=== PATIENT | female | born 1960 | race Caucasian/White ===

== ENCOUNTER 2017-05-06 12:32 | Observation (INO) ==
[2017-05-06] MEDS ORDERED: Aspirin 81 MG TAB.CHEW PO ONE (12:59)
[2017-05-06 13:15] LABS: Basophils # 0.1 K/mcL (0.0-0.2); Basophils % 0.8 %; Hematocrit 47.4 % (35.3-44.9); Hemoglobin 15.6 g/dL (11.5-15.4); Immature Granulocytes % 0.5 % (0-4); Immature Platelets 3.4 % (1.1-6.1); Lymphocytes # 3.3 K/mcL (0.6-4.6); Lymphocytes % 28.4 %; Mean Corpuscular HGB Conc 32.9 g/dL (31.6-35.5); Mean Corpuscular Hemoglobin 29.4 pg (28.0-33.3); Mean Corpuscular Volume 89.4 fL (83.0-100.0); Mean Platelet Volume 9.8 fL (9.4-12.4); Monocytes # 0.9 K/mcL (0.0-1.3); Monocytes % 7.5 %; Neutrophils # 7.2 K/mcL (1.6-8.9); Platelet Count 355 K/mcL (140-400); Red Cell Distribution Width 12.9 % (11.5-14.5); Segmented Neutrophils % 62.8 %
[2017-05-06] MEDS ORDERED: Nitroglycerin 0.4 MG TAB.SUBL SL PRN (13:21)
--- NOTE | 2017-05-06 13:26 | Emergency Department Note ---
Disposition Clinical Impression: Chest pain Qualifiers: Chest pain type: unspecified Qualified Code(s): R07.9 - Chest pain, unspecified Disposition: Admitted As Inpatient Condition: Good Referrals: Oscar Huang MD [Non-Partnered Physician] - Forms: ED Satisfaction Letter Chest Pain HPI - General Chief Complaint: ED Chest Pain Stated Complaint: chest pressure Time Seen by Provider: 05/06/17 12:45 Source: patient Mode of arrival: private vehicle Limitations: no limitations Vital Signs Reviewed: Yes Nursing Notes Reviewed: Yes - History of Present Illness HPI Narrative: 56-year-old female history of hypertension, chronic pain recently weaned from tramadol one week ago and out of her antidepressant who presents to the ER due to intermittent chest pain for 3 days. Patient states she developed chest pain whenever she is exerting herself. States she gets worse when she is walking around or doing her usual activities. Reports she has a dull ache at rest. She has been short of breath during this time as well. She denies prior history of cardiac disease. She was wondering may be a part of it was to not being on tramadol anymore. Reports that she has had some generalized aches. No other complaints. Pt complaint: chest pain Onset (ago): day(s) Duration: intermittent Onset: during exertion Pain Location: left chest Severity: moderate Severity scale (1-10): 7 Quality: aching Pain Radiation: LUE Improves with: nothing Worsens with: exertion Associated symptoms: Reports: dyspnea. Denies: nausea, vomiting, diaphoresis Treatments prior to arrival chest pain: none - Related Data On Oral Contraceptives: No Allergies Allergy/AdvReac Type Severity Reaction Status Date / Time sulfamethoxazole Allergy See Verified 05/06/17 12:40 [From ] Comments trimethoprim [From ] Allergy See Verified 05/06/17 12:40 Comments Sulfa (Sulfonamide AdvReac Hives Verified 05/06/17 12:40 Antibiotics) All systems ED: reviewed and negative except as stated. Constitutional: Denies: fever Cardiovascular: Reports: chest pain, dyspnea on exertion Respiratory: Reports: dyspnea. Denies: cough Gastrointestinal: Denies: abdominal pain, nausea, vomiting Chest Pain PMH - Past Medical History Medical history: Reports: no medical history Psychiatric history: Reports: depression - Social History Smoking Status: Never smoker Alcohol use: Reports: none Drug use: Reports: none Physical Exam - General Limitations: no limitations General appearance: alert, in no apparent distress - Head Head exam: atraumatic - Eye Eye exam: Present: normal appearance - ENT ENT exam: normal exam - Neck Neck exam: Present: normal inspection - Chest Chest inspection: Present: normal inspection, symmetric chest wall rise - Respiratory Respiratory exam: Present: normal lung sounds bilaterally - Cardiovascular Cardiovascular exam: Present: normal rhythm, tachycardia, normal heart sounds - Abdominal Exam Abdominal exam: Present: soft, Non-Tender. Absent: tenderness - Extremities Exam Extremities exam: Present: normal inspection, full ROM - Expanded Upper Extremity Exam Shoulder exam: Present: normal inspection, full ROM Arm exam: Present: normal inspection, full ROM Elbow exam: Present: normal inspection, full ROM Forearm/Wrist exam: Present: normal inspection, full ROM Hand exam: Present: normal inspection, full ROM - Expanded Lower Extremity Exam Hip/Pelvis exam: Present: normal inspection, full ROM Upper leg exam: Present: normal inspection, full ROM Knee exam: Present: normal inspection, full ROM Lower leg exam: Present: normal inspection, full ROM Ankle exam: Present: normal inspection, full ROM Foot/toe exam: Present: normal inspection, full ROM - Skin Skin exam: Present: warm, dry Course Course Narrative: Patient seen and examined. We will get an EKG, chest x-ray as well as labs including troponin. Reporting of some baseline pain now so we will give her an aspirin and nitroglycerin. - Reevaluation(s) Reevaluation #1: Discussed results of imaging and labs with the patient. Reports her chest pain is gone after 2 sublingual nitroglycerin. She is agreeable with admission to the hospital. Vital Signs Temperature 99.0 F 05/06/17 12:41 Pulse Rate 107 05/06/17 12:41 Respiratory Rate 18 05/06/17 12:41 Blood Pressure 158/99 05/06/17 12:41 O2 Sat by Pulse Oximetry 99 05/06/17 12:41 Temperature 99.0 F 05/06/17 12:41 Pulse Rate 107 05/06/17 12:41 Respiratory Rate 18 05/06/17 12:41 Blood Pressure 158/99 05/06/17 12:41 O2 Sat by Pulse Oximetry 99 05/06/17 12:41 Oxygen Delivery Oxygen Delivery Room Air Chest Pain - MDM Narrative Medical decision making narrative: 56-year-old female presents to the ER due to intermittent chest pain for 3 days. Exertional with a baseline dull pressure. Her EKG here is nonischemic. Chest x-ray unremarkable. Initial troponin negative. Patient given an aspirin and 2 sublingual nitroglycerin with resolution of her chest pain. She is admitted to the hospitalist service for chest pain rule out. - Lab Data Lab results reviewed: Yes I reviewed the patient's lab results. Result diagrams: 05/06/17 13:06 05/06/17 13:06 Lab Results 05/06/17 05/06/17 05/06/17 Range/Units 13:06 13:06 13:06 WBC 11.5 H (4.3-11.1) K/mcL RBC 5.30 H (3.82-4.97) M/mcL Hgb 15.6 H (11.5-15.4) g/dL Hct 47.4 H (35.3-44.9) % MCV 89.4 (83.0-100.0) fL MCH 29.4 (28.0-33.3) pg MCHC 32.9 (31.6-35.5) g/dL RDW 12.9 (11.5-14.5) % Plt Count 355 (140-400) K/mcL MPV 9.8 (9.4-12.4) fL Immature Gran % 0.5 (0-4) % Seg Neutrophils % 62.8 % Lymphocytes % 28.4 % Monocytes % 7.5 % Eosinophils % 0.0 % Basophils % 0.8 % Neutrophils # 7.2 (1.6-8.9) K/mcL Lymphocytes # 3.3 (0.6-4.6) K/mcL Monocytes # 0.9 (0.0-1.3) K/mcL Eosinophils # 0.0 (0.0-0.6) K/mcL Basophils # 0.1 (0.0-0.2) K/mcL Immature Plt Fraction 3.4 (1.1-6.1) % Sodium 138 (136-145) mEq/L Potassium 3.2 L (3.5-5.1) mEq/L Chloride 105 (98-107) mEq/L Carbon Dioxide 24 (23-29) mEq/L BUN 7 (6-20) mg/dL Creatinine 0.64 (0.60-1.20) mg/dL Est GFR ( Amer) > 60 (> 60) Est GFR (Non-Af Amer) > 60 (> 60) BUN/Creatinine Ratio 11 (6-26) Glucose 116 H (70-105) mg/dL Calculated Osmolality 285 (280-300) Calcium 8.8 (8.6-10.3) mg/dL Troponin I (< 0.04) ng/mL B-Natriuretic Peptide 40 (Less than 100) pg/mL 05/06/17 Range/Units 13:06 WBC (4.3-11.1) K/mcL RBC (3.82-4.97) M/mcL Hgb (11.5-15.4) g/dL Hct (35.3-44.9) % MCV (83.0-100.0) fL MCH (28.0-33.3) pg MCHC (31.6-35.5) g/dL RDW (11.5-14.5) % Plt Count (140-400) K/mcL MPV (9.4-12.4) fL Immature Gran % (0-4) % Seg Neutrophils % % Lymphocytes % % Monocytes % % Eosinophils % % Basophils % % Neutrophils # (1.6-8.9) K/mcL Lymphocytes # (0.6-4.6) K/mcL Monocytes # (0.0-1.3) K/mcL Eosinophils # (0.0-0.6) K/mcL Basophils # (0.0-0.2) K/mcL Immature Plt Fraction (1.1-6.1) % Sodium (136-145) mEq/L Potassium (3.5-5.1) mEq/L Chloride (98-107) mEq/L Carbon Dioxide (23-29) mEq/L BUN (6-20) mg/dL Creatinine (0.60-1.20) mg/dL Est GFR ( Amer) (> 60) Est GFR (Non-Af Amer) (> 60) BUN/Creatinine Ratio (6-26) Glucose (70-105) mg/dL Calculated Osmolality (280-300) Calcium (8.6-10.3) mg/dL Troponin I < 0.03 (< 0.04) ng/mL B-Natriuretic Peptide (Less than 100) pg/mL - Radiology Data Radiology results reviewed: Yes I reviewed the patient's radiology results. Chest X-Ray 05/06/17 12:59 IMPRESSION: No acute process. D/ / 05/06/2017 13:34:29 Meet Gutierrez MD / jesus Interpreting Provider: Meet Gutierrez MD - EKG Data EKG attestation: Yes I reviewed and interpreted this EKG. EKG results narrative: EKG initially sinus rhythm with a rate of 94 beats minute. Left axis deviation. Normal intervals. Normal R-wave progression. T-wave inversions in lead 3. No gross ST elevations or depressions. No acute ischemic findings. No significant changes from previous EKG dated 02/15/13. Heart Score - Score History: Moderately Suspicious EKG: Normal Age: 45-65 Risk Factors: 1-2 risk factors Troponin: Less than normal limit HEART Score Total: 3 S.B.A.R. - S.Mundo.A.Rosendo Situation: Demographics, MOA Background: Presenting Complaint, Relevant PMH, Meds, & Allergies Assessment: Vital Signs, Course and respsone to treatment, Exam Concerns, Patient/Family Expectation, Pertinant Lab Results Recommendation: Barrier(s) to disposition, Recommendation based on pending studies, treatments, or consults S.B.A.RNola Report Given to: Dr. Nadine Medrano Repor Time: 14:33 Attestation Statement - Attestation Attestation: I examined this patient and my medical decision-making was reviewed with the Resident Physician, Dr. Gamez. I agree with the documented findings, disposition and treatment plan as described except to the extent set forth below. Patient is a 56-year-old white female history of hypertension who presents to the emergency department with a three-day history of intermittent chest pain that she describes and location as to under her left breast that radiates into her left neck shoulder and arm associated with shortness of breath, diaphoresis , and mild nausea. Patient states these symptoms are exacerbated by exertion and resolved with rest. 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 Patient has no prior cardiac history and has never had any cardiac testing done in the past. Her only other significant recent medical history is that she suffers from chronic pain from osteoarthritis as well as low back pain from herniated disks and has been on tramadol chronically for years and this was discontinued approximately one week ago. Patient states that she has noticed some more aching in her knees and low back generally but nothing significant pain osborn, and does not feel that these chest symptoms are related to this. Patient does state that she spelled a little more anxious than normal but denies any palpitations and no other associated symptoms. I agree with patient's physical exam findings as documented, vital signs are stable patient's in no acute distress on arrival. EKG was normal sinus with no acute ST or T-wave changes appreciated. Patient's chest x-ray was unremarkable for any infiltrate or effusion normal heart size and mediastinum. Patient was given aspirin on arrival. Patient's labs overall are unremarkable with a negative troponin. At this time will recommend admission for further evaluation and treatment for provocative testing to rule out a cardiac source of chest pain. Patient agrees with this plan we will discuss with the hospitalist.
[2017-05-06 13:33] LABS: BUN/Creatinine Ratio 11 (6-26); Blood Urea Nitrogen 7 mg/dL (6-20); Calcium 8.8 mg/dL (8.6-10.3); Carbon Dioxide 24 mEq/L (23-29); Chloride 105 mEq/L (98-107); Glucose 116 mg/dL (70-105); Osmolality,Calculated 285 (280-300); Potassium 3.2 mEq/L (3.5-5.1); Sodium 138 mEq/L (136-145); eGFR For African Americans > 60 (> 60); eGFR For Non-African Americans > 60 (> 60)
[2017-05-06] MEDS ORDERED: Ondansetron 4 MG/2 ML VIAL IVP PRN (15:26)
[2017-05-06] MEDS ORDERED: Acetaminophen 325 MG TABLET PO PRN (15:26)
[2017-05-06] MEDS ORDERED: Ipratropium/Albuterol Neb 3 ML IH PRN (15:26)
[2017-05-06] MEDS ORDERED: Naloxone 0.4 MG/ML INJ IVP PRN (15:26)
[2017-05-06] MEDS ORDERED: 0.9 % Sodium Chloride 1,000 ML IVC SCH (15:30)
--- NOTE | 2017-05-06 15:31 | Internal Med History&Physical ---
Date of Encounter: 05/06/17 Time of Encounter: 15:29 Assessment and Plan (1) Chest pain Current visit: Yes Status: Acute Aspirin, lipid panel Nitroglycerin as needed Hold metoprolol for stress test Telemetry, monitor troponins, schedule a stress test and an echocardiogram for the morning Omeprazole for GI prophylaxis and Lovenox for DVT prophylaxis. The patient will be admitted for observation. Full code. Time spent on this admission 40 minutes Qualifiers: Chest pain type: unspecified Qualified Code(s): R07.9 - Chest pain, unspecified (2) Hypokalemia Current visit: Yes Status: Acute Replete as needed (3) Accelerated hypertension Current visit: Yes Status: Acute Use hydralazine as needed a Continue Ibersartan (4) Depression Current visit: Yes Status: Acute Stable Continue citalopram Qualifiers: Depression Type: major depressive disorder Active/Remission status: in partial remission Qualified Code(s): F32.4 - Major depressive disorder, single episode, in partial remission Internal Medicine - H&P: HPI Chief complaint: Chest pain Admitted From: Emergency Dept History of present illness: Ms. Thomas is a 56 year old female with a past medical history of hypertension, depression, restless leg syndrome, chronic pain who was recently weaned off tramadol about a week ago. Patient started complaining of chest pain 3 days ago on and off mainly on exertion 7 out of 10 in intensity that is intermittent and has decreased to 4 out of 10 in intensity accompanied at times of diaphoresis and headache. The pain is midsternal and radiated the left breast and left shoulder. EKG shows a T-wave inversion in lead 3 alone. White blood cell count is 11.5 hemoglobin is 15.6 hematocrit 47.6. Chest x-ray does not show any acute cardiopulmonary disease. Blood pressure was 158/99 and her heart rate was 107. She is complaining still of some discomfort, denies any other symptoms Past Med Surg Social Fam HX - Past Medical History Medical history: hypertension, other (Chronic pain, depression, lumbar spinal stenosis, C. difficile, osteoarthritis, degenerative disc disease, restless leg syndrome) Psychiatric history: depression - Past Surgical History Surgical History: cholecystectomy, other (Carpal tunnel syndrome surgery) - Social History Smoking Status: Never smoker Smokeless Tobacco Status: No Alcohol use: none Drug use: none - Additional Family History Additional family history: Father mother and sister all with diabetes and hypertension, father and mother with CVA and SD in the 50s. Paternal uncle with multiple sclerosis Internal Medicine - H&P: Meds Aspirin 81 mg PO DAILY 05/06/17 [History] Carbidopa/Levodopa ER 50/200 [Sinemet ER 50-200 TAB] 1 tab PO TID 05/06/17 [ History] Citalopram Hydrobromide [Celexa] 20 mg PO DAILY 05/06/17 [History] Ferrous Sulfate [Iron] 325 mg PO DAILY 05/06/17 [History] Furosemide [Lasix] 40 mg PO BID 05/06/17 [History] Irbesartan [Avapro] 150 mg PO DAILY 05/06/17 [History] Metoprolol [Lopressor] 25 mg PO BID 05/06/17 [History] Mirabegron [Myrbetriq] 50 mg PO DAILY 05/06/17 [History] Potassium Chloride [K-Tab ER] 20 meq PO BID 05/06/17 [History] Trospium Chloride 20 mg PO BID 05/06/17 [History] 3 Allergy/AdvReac Type Severity Reaction Status Date / Time sulfamethoxazole Allergy See Verified 05/06/17 15:16 [From Decra] Comments trimethoprim [From Decra] Allergy See Verified 05/06/17 15:16 Comments Sulfa (Sulfonamide AdvReac Hives Verified 05/06/17 15:16 Antibiotics) All Systems PM: A 10-system review of systems was performed and is negative for pertinent findings except as documented above in the HPI. Review of systems: Mild chest discomfort, other systems out of the 10 reviewed were negative - Constitutional Vitals: Temp Pulse Resp BP Pulse Ox 99.0 F 107 18 158/99 99 05/06/17 12:41 05/06/17 12:41 05/06/17 12:41 05/06/17 12:41 05/06/17 12:41 General appearance: Present: A&O X 3, obese - Head Head exam: Present: atraumatic, normocephalic - Eye Eye exam: Present: PERRL, conjuntiva pink, sclera anicteric Pupils: Present: PERRL - Neck Neck exam general surgery: Present: supple, trachea midline. Absent: lymphadenopathy - Respiratory Respiratory exam: Present: CTAB. Absent: accessory muscle use, rales, rhonchi, wheezes - Cardiovascular Cardiovascular exam: Present: RRR, +S1, +S2. Absent: diastolic murmur, gallop, rubs, systolic murmur - GI/Abdominal GI/Abdominal exam: Present: normal bowel sounds, soft, no peritoneal signs. Absent: distended, tenderness - Extremities Exam Extremities exam: Present: warm, radial pulses palpable and symmetrical. Absent : calf tenderness, cyanotic, pedal edema - Neurological Exam Neurological exam: Present: CN II-XII intact, oriented X3, no focal deficits. Absent: pronater drift, facial droop, speech deficit - Skin Skin exam: Present: dry, intact Internal Med - H&P Results - Labs CBC & Chem 7: 05/06/17 13:06 05/06/17 13:06
[2017-05-06] MEDS: Furosemide 40 MG TABLET PO SCH (16:10)
[2017-05-06] MEDS: *HR* Enoxaparin 40 MG/0.4 ML SYRINGE SQ SCH (16:11)
[2017-05-06] MEDS: *HR* OxyCODONE Immed Rel 5 MG TABLET PO PRN (17:24)
[2017-05-07] MEDS: *HR* OxyCODONE Immed Rel 5 MG TABLET PO PRN (01:21)
[2017-05-07] MEDS: Carbidopa/Levodopa ER 50/200 TABLET PO SCH ×2 (01:36→09:36)
[2017-05-07 02:02] LABS: BUN/Creatinine Ratio 13 (6-26); Blood Urea Nitrogen 9 mg/dL (6-20); Calcium 8.3 mg/dL (8.6-10.3); Carbon Dioxide 22 mEq/L (23-29); Chloride 108 mEq/L (98-107); Chol/HDL Ratio 6.1 (0-4.9); Cholesterol 194 mg/dL (< 200); Glucose 102 mg/dL (70-105); HDL Cholesterol 32 mg/dL (40-59); LDL Cholesterol,Calculated 115 mg/dL (0-99); Osmolality,Calculated 291 (280-300); Potassium 3.2 mEq/L (3.5-5.1); Sodium 141 mEq/L (136-145); Triglycerides 233 mg/dL (< 150); eGFR For African Americans > 60 (> 60); eGFR For Non-African Americans > 60 (> 60)
[2017-05-07] MEDS: *HR* Enoxaparin 40 MG/0.4 ML SYRINGE SQ SCH (05:43)
[2017-05-07 07:21] VITALS: BP 162/87
[2017-05-07] MEDS ORDERED: Potassium Chloride Elixir 20 MEQ/15 ML UDC PO ONE (08:02)
[2017-05-07] MEDS ORDERED: Aspirin Enteric Coated 325 MG Tablet PO SCH (09:00)
[2017-05-07] MEDS: Furosemide 40 MG TABLET PO SCH (09:36)
--- NOTE | 2017-05-08 22:18 | Discharge Summary ---
Date of Encounter: 05/07/17 Time of Encounter: 10:00 - Discharge Diagnosis (1) Chest pain Priority: Primary Status: Acute Qualifiers: Chest pain type: unspecified Qualified Code(s): R07.9 - Chest pain, unspecified (2) Essential hypertension Priority: Secondary Status: Chronic (3) Hypokalemia Priority: Primary Status: Acute (4) Depression Priority: Secondary Status: Chronic Qualifiers: Depression Type: unspecified Qualified Code(s): F32.9 - Major depressive disorder, single episode, unspecified - Discharge Medications Home Medications: Aspirin 81 mg PO DAILY 05/06/17 [History] Carbidopa/Levodopa ER 50/200 [Sinemet ER 50-200 TAB] 1 tab PO TID 05/06/17 [ History] Citalopram Hydrobromide [Celexa] 20 mg PO DAILY 05/06/17 [History] Ferrous Sulfate [Iron] 325 mg PO DAILY 05/06/17 [History] Furosemide [Lasix] 40 mg PO BID 05/06/17 [History] Irbesartan [Avapro] 150 mg PO DAILY 05/06/17 [History] Metoprolol [Lopressor] 25 mg PO BID 05/06/17 [History] Mirabegron [Myrbetriq] 50 mg PO DAILY 05/06/17 [History] Potassium Chloride [K-Tab ER] 20 meq PO BID 05/06/17 [History] Trospium Chloride 20 mg PO BID 05/06/17 [History] Allergies/Adverse Reactions: 3 Allergy/AdvReac Type Severity Reaction Status Date / Time sulfamethoxazole Allergy See Verified 05/06/17 15:16 [From ] Comments trimethoprim [From ] Allergy See Verified 05/06/17 15:16 Comments Sulfa (Sulfonamide AdvReac Hives Verified 05/06/17 15:16 Antibiotics) Date of admission: 05/06/17 14:38 Primary care physician: Ruben Riley Consults: 05/06/17 16:06 Consult to Nutrition [CONS] Routine Comment: Consulting Provider: NUTRITION Reason for Dietary Consult: MST Score Discharging clinician: Criselda Chavez Anticipated date of discharge: 05/07/17 - Patient Status Disposition: Left Against Medical Advice Condition: Good - Discharge Instructions Follow Up With: [place],Ruben Scott, DO [Primary Care Provider] - Hospital course: Ms. Thomas is a 56 year old female with the above medical problems, who was admitted with retrosternal chest pain. Initial labs, EKG, chest XRay showed no acute abnormality. serial Troponins remained negative. SHe was noted to have hypokalemia and was supplemented with potassium chloride, Magnesium level was pending. She was scheduled for Echocardiogram and nuclear stress test, however patient stated she had to take care of her and could not stay in the hospital any longer. SHe was explained about the risks of leaving against medical advice, however she did sign AMA papers, she was alert and oriented at the time. She was strongly encouraged to f/up with her PCP. - Time Spent with Patient Total time spent providing and/or coordinating discharge services: Greater than 30 minutes (40 min) - Constitutional Vitals: Temp Pulse Resp BP Pulse Ox 97.8 F 93 16 162/87 96 05/07/17 07:20 05/07/17 07:20 05/07/17 07:20 05/07/17 07:20 05/07/17 07:20 General appearance: Present: A&O X 3, obese, answers questions appropriately - Respiratory Respiratory exam: Present: CTAB. Absent: accessory muscle use, rales, rhonchi, wheezes - Cardiovascular Cardiovascular exam: Present: RRR, +S1, +S2. Absent: diastolic murmur, gallop, rubs, systolic murmur
--- NOTE | 2017-05-09 17:07 | Electrocardiograph Report ---
[place] [id number] Test Date: 2017-05-06 Pat Name: Melyssa Thomas Department: 104 Room: 2A Gender: F Rn Liaison: : 1960 Requested By: Kenneth Gamez Order Number: [id number] Reading MD: Cole Alaniz Measurements Intervals [place] Rate: 94 P: 23 VA: 146 QRS: -10 QRSD: 89 T: 11 QT: 346 QTc: 397 Interpretive Statements SINUS RHYTHM INFERIOR MYOCARDIAL INFARCTION, PROBABLY OLD Electronically Signed On 05-09-2017 17:05:22 EST by Cole Alaniz
== END 2017-05-07 09:56 | disposition left against medical advice (07) ==
LOC: 2ANU 12:32 → EMEROO 12:32 → SUATTDRO 14:38 → 2ANU 15:43
PROVIDERS: ADMIT Internal Medicine; ATTEND Internal Medicine

== ENCOUNTER 2020-12-11 23:28 | Inpatient (IN) ==
[2020-12-12] MEDS ORDERED: *HR* HYDROmorphone (PF) 1 MG/ML SYRINGE IVP ONE ×3 (02:43→09:43)
[2020-12-12 05:31] LABS: Basophils # 0.1 K/mcL (0.0-0.2); Basophils % 0.5 %; Eosinophils # 0.1 K/mcL (0.0-0.6); Eosinophils % 0.7 %; Hematocrit 38.9 % (35.3-44.9); Hemoglobin 12.5 g/dL (11.5-15.4); Immature Granulocytes % 0.7 % (0-4); Lymphocytes # 2.4 K/mcL (0.6-4.6); Lymphocytes % 13.9 %; Mean Corpuscular HGB Conc 32.1 g/dL (31.6-35.5); Mean Corpuscular Hemoglobin 30.6 pg (28.0-33.3); Mean Corpuscular Volume 95.1 fL (83.0-100.0); Mean Platelet Volume 9.5 fL (9.4-12.4); Monocytes # 1.4 K/mcL (0.0-1.3); Monocytes % 8.1 %; Neutrophils # 12.8 K/mcL (1.6-8.9); Platelet Count 315 K/mcL (140-400); Red Blood Count 4.09 M/mcL (3.82-4.97); Red Cell Distribution Width 13.5 % (11.5-14.5); Segmented Neutrophils % 76.1 %; White Blood Count 16.9 K/mcL (4.3-11.1)
[2020-12-12 05:47] LABS: Blood Urea Nitrogen 16 mg/dL (6-20); Carbon Dioxide 25 mEq/L (23-29); Chloride 107 mEq/L (98-107); Potassium 3.4 mEq/L (3.5-5.1); Sodium 140 mEq/L (136-145)
[2020-12-12 05:48] LABS: BUN/Creatinine Ratio 21 (6-26); Calcium 9.1 mg/dL (8.6-10.3); Glucose 127 mg/dL (70-105); Osmolality,Calculated 293 (280-300); eGFR For African Americans > 60 (> 60); eGFR For Non-African Americans > 60 (> 60)
[2020-12-12 08:49] LABS: INR 1.1; Prothrombin Time 12.5 Seconds (9.4-12.1)
[2020-12-12] MEDS ORDERED: Ondansetron 4 MG/2 ML VIAL IVP PRN (09:36)
[2020-12-12] MEDS ORDERED: Ketorolac 15 MG/ML VIAL IVP PRN (09:36)
[2020-12-12] MEDS ORDERED: Naloxone 0.4 MG/ML INJ IVP PRN (09:36)
[2020-12-12] MEDS: *HR* Heparin 5,000 UNIT/ML VIAL SQ SCH (17:34)
[2020-12-12] MEDS ORDERED: *HR* HYDROmorphone 2 MG/ML SYRINGE IVP PRN (20:07)
[2020-12-12] MEDS: Budesonide/Formoterol 80/4.5 1 PUFF INH IH SCH (22:39)
[2020-12-13] MEDS: *HR* Heparin 5,000 UNIT/ML VIAL SQ SCH (05:30)
[2020-12-13 05:47] LABS: Basophils # 0.1 K/mcL (0.0-0.2); Basophils % 0.8 %; Eosinophils # 0.1 K/mcL (0.0-0.6); Eosinophils % 0.7 %; Hematocrit 39.9 % (35.3-44.9); Hemoglobin 12.6 g/dL (11.5-15.4); Immature Granulocytes % 1.1 % (0-4); Lymphocytes % 17.8 %; Mean Corpuscular HGB Conc 31.6 g/dL (31.6-35.5); Mean Corpuscular Hemoglobin 30.1 pg (28.0-33.3); Mean Corpuscular Volume 95.5 fL (83.0-100.0); Mean Platelet Volume 9.6 fL (9.4-12.4); Monocytes # 1.3 K/mcL (0.0-1.3); Monocytes % 11.5 %; Neutrophils # 7.7 K/mcL (1.6-8.9); Platelet Count 258 K/mcL (140-400); Red Blood Count 4.18 M/mcL (3.82-4.97); Red Cell Distribution Width 13.4 % (11.5-14.5); Segmented Neutrophils % 68.1 %; White Blood Count 11.3 K/mcL (4.3-11.1)
[2020-12-13 06:07] LABS: BUN/Creatinine Ratio 17 (6-26); Blood Urea Nitrogen 13 mg/dL (6-20); Calcium 8.7 mg/dL (8.6-10.3); Carbon Dioxide 23 mEq/L (23-29); Chloride 105 mEq/L (98-107); Glucose 127 mg/dL (70-105); Osmolality,Calculated 286 (280-300); Potassium 3.4 mEq/L (3.5-5.1); Sodium 137 mEq/L (136-145); eGFR For African Americans > 60 (> 60); eGFR For Non-African Americans > 60 (> 60)
[2020-12-13] MEDS ORDERED: *HR* Succinylcholine 200 MG/10 ML VIAL IVP ONE (06:52)
[2020-12-13] MEDS ORDERED: *HR* HYDROMORPHONE 2 MG/ML VIAL ONE (06:52)
[2020-12-13] MEDS ORDERED: *HR* Rocuronium Bromide 50 MG/5 ML VIAL ONE (06:52)
[2020-12-13] MEDS ORDERED: Lidocaine -MPF 2% 2 ML VIAL ONE (06:52)
[2020-12-13] MEDS ORDERED: *HR* Propofol 200 MG/20 ML VIAL IVP ONE ×2 (06:52)
[2020-12-13] MEDS ORDERED: Ondansetron 4 MG/2 ML VIAL ONE (06:52)
[2020-12-13] MEDS ORDERED: *HR* FentaNYL (PF) 100 MCG/2 ML VIAL ONE (06:52)
[2020-12-13] MEDS ORDERED: *HR* Midazolam HCl 2 MG/2 ML VIAL ONE (06:52)
[2020-12-13] MEDS ORDERED: *HR* HYDROmorphone PF 0.5 MG/0.5 ML SYRINGE IVP PRN ×2 (07:45→12:41)
[2020-12-13] MEDS ORDERED: *HR* OxyCODONE Immed Rel 5 MG TABLET PO PRN ×2 (07:45→12:41)
[2020-12-13] MEDS ORDERED: Ondansetron 4 MG/2 ML VIAL IVP PRN ×3 (08:05→12:41)
[2020-12-13] MEDS ORDERED: Promethazine 6.25 MG in Water for inj. (sterile) 20 ML IVPB PRN ×2 (08:05→12:41)
[2020-12-13] MEDS ORDERED: Scopolamine Patch 1.5 MG PATCH.TD72 TD ONE ×2 (08:10→12:41)
[2020-12-13] MEDS ORDERED: Acetaminophen IV 1,000 MG/100 ML BAG IVPB ONE (08:12)
[2020-12-13] MEDS: Budesonide/Formoterol 80/4.5 1 PUFF INH IH SCH ×2 (08:21→21:53)
[2020-12-13] MEDS ORDERED: *HR* Magnesium Sulfate 1 GM/2 ML VIAL ONE (08:41)
[2020-12-13] MEDS ORDERED: Ketorolac 30 MG/ML VIAL ONE (08:47)
[2020-12-13 10:07] LABS: ABG Base Excess -2 mEq/L (-2 to 3); ABG HCO3 27 mEq/L (21-27); ABG Oxygen Saturation 85 % (95-98); ABG PCO2 68 mmHg (35-45); ABG PH 7.21 pH Units (7.32-7.45); ABG PO2 63 mmHg (85-104); ABG TCO2 29 mEq/L (20-26)
[2020-12-13 10:40] LABS: Basophils # 0.1 K/mcL (0.0-0.2); Basophils % 0.6 %; Hematocrit 37.6 % (35.3-44.9); Hemoglobin 11.7 g/dL (11.5-15.4); Immature Granulocytes % 1.7 % (0-4); Lymphocytes # 2.2 K/mcL (0.6-4.6); Lymphocytes % 11.6 %; Mean Corpuscular HGB Conc 31.1 g/dL (31.6-35.5); Mean Corpuscular Hemoglobin 30.2 pg (28.0-33.3); Mean Corpuscular Volume 97.2 fL (83.0-100.0); Mean Platelet Volume 9.7 fL (9.4-12.4); Monocytes # 1.3 K/mcL (0.0-1.3); Platelet Count 253 K/mcL (140-400); Red Blood Count 3.87 M/mcL (3.82-4.97); Red Cell Distribution Width 13.5 % (11.5-14.5); Segmented Neutrophils % 79.1 %
[2020-12-13 10:41] LABS: Neutrophils # 14.6 K/mcL (1.6-8.9); White Blood Count 18.5 K/mcL (4.3-11.1)
[2020-12-13 10:55] LABS: BUN/Creatinine Ratio 16 (6-26); Blood Urea Nitrogen 13 mg/dL (6-20); Calcium 8.3 mg/dL (8.6-10.3); Carbon Dioxide 25 mEq/L (23-29); Chloride 105 mEq/L (98-107); Glucose 170 mg/dL (70-105); Osmolality,Calculated 286 (280-300); Potassium 3.8 mEq/L (3.5-5.1); Sodium 136 mEq/L (136-145); eGFR For African Americans > 60 (> 60); eGFR For Non-African Americans > 60 (> 60)
[2020-12-13] MEDS ORDERED: Isovue-370 500 ML BOTTLE IVP ONE (11:14)
[2020-12-13] MEDS ORDERED: Heparin 25,000UNIT/250ML 1/2NS 25,000 UNIT/250 ML IV.SOLN IVC SCH (12:15)
[2020-12-13] MEDS ORDERED: *HR* Heparin 5,000 UNIT/ML VIAL IVP PRN ×4 (12:15→13:26)
[2020-12-13] MEDS ORDERED: *HR* Heparin 5,000 UNIT/ML VIAL IVP ONE (12:15)
[2020-12-13] MEDS ORDERED: Naloxone 0.4 MG/ML INJ IVP PRN (12:41)
[2020-12-13] MEDS ORDERED: Ipratropium/Albuterol Neb 3 ML IH PRN (13:29)
[2020-12-13] MEDS ORDERED: Perflutren Lipid Microsphere 1.3 ML in 0.9 % Sodium Chloride 8.7 ML IVP PRN (13:42)
[2020-12-13 14:53] LABS: Hematocrit 38.1 % (35.3-44.9); Mean Corpuscular HGB Conc 31.5 g/dL (31.6-35.5); Mean Corpuscular Hemoglobin 30.5 pg (28.0-33.3); Mean Corpuscular Volume 96.9 fL (83.0-100.0); Mean Platelet Volume 9.8 fL (9.4-12.4); Platelet Count 252 K/mcL (140-400); Red Blood Count 3.93 M/mcL (3.82-4.97); Red Cell Distribution Width 13.2 % (11.5-14.5); White Blood Count 18.3 K/mcL (4.3-11.1)
[2020-12-13 15:01] LABS: Heparin anti-factor XA UFH 0.26 IU/mL (0.30-0.70)
[2020-12-13 15:02] LABS: INR 1.1; Prothrombin Time 13.2 Seconds (9.4-12.1)
[2020-12-13] MEDS ORDERED: ceFAZolin 3,000 MG in 0.9 % Sodium Chloride 100 ML IVPB SCH (16:00)
[2020-12-13] MEDS: ceFAZolin 3,000 MG in 0.9 % Sodium Chloride 100 ML IVPB SCH (16:25)
[2020-12-13] MEDS: Heparin 25,000UNIT/250ML 1/2NS 25,000 UNIT/250 ML IV.SOLN IVC SCH (20:08)
[2020-12-13] MEDS: *HR* HYDROmorphone 2 MG/ML SYRINGE IVP PRN (23:04)
[2020-12-14] MEDS: ceFAZolin 3,000 MG in 0.9 % Sodium Chloride 100 ML IVPB SCH (01:26)
[2020-12-14] MEDS: Heparin 25,000UNIT/250ML 1/2NS 25,000 UNIT/250 ML IV.SOLN IVC SCH (02:37)
[2020-12-14] MEDS: Aspirin 81 MG TAB.CHEW PO SCH (07:48)
[2020-12-14] MEDS: Budesonide/Formoterol 80/4.5 1 PUFF INH IH SCH ×2 (08:12→20:29)
[2020-12-14] MEDS ORDERED: *HR* Enoxaparin 150 MG/ML SYRINGE SQ SCH (09:00)
[2020-12-14] MEDS: *HR* HYDROmorphone 2 MG/ML SYRINGE IVP PRN (11:26)
[2020-12-14 12:48] LABS: Basophils # 0.1 K/mcL (0.0-0.2); Basophils % 0.4 %; Eosinophils # 0.1 K/mcL (0.0-0.6); Eosinophils % 0.3 %; Hematocrit 33.8 % (35.3-44.9); Hemoglobin 10.7 g/dL (11.5-15.4); Immature Granulocytes % 1.2 % (0-4); Lymphocytes # 2.7 K/mcL (0.6-4.6); Lymphocytes % 16.1 %; Mean Corpuscular HGB Conc 31.7 g/dL (31.6-35.5); Mean Corpuscular Hemoglobin 30.8 pg (28.0-33.3); Mean Corpuscular Volume 97.4 fL (83.0-100.0); Mean Platelet Volume 9.8 fL (9.4-12.4); Monocytes # 1.6 K/mcL (0.0-1.3); Monocytes % 9.4 %; Neutrophils # 12.3 K/mcL (1.6-8.9); Nucleated Red Blood Cells 0.1 /100 WBC (0); Platelet Count 254 K/mcL (140-400); Red Blood Count 3.47 M/mcL (3.82-4.97); Red Cell Distribution Width 13.4 % (11.5-14.5); Segmented Neutrophils % 72.6 %; White Blood Count 16.9 K/mcL (4.3-11.1)
[2020-12-14 13:01] LABS: BUN/Creatinine Ratio 19 (6-26); Blood Urea Nitrogen 11 mg/dL (6-20); Calcium 8.5 mg/dL (8.6-10.3); Carbon Dioxide 24 mEq/L (23-29); Chloride 106 mEq/L (98-107); Glucose 106 mg/dL (70-105); Osmolality,Calculated 284 (280-300); Potassium 3.9 mEq/L (3.5-5.1); Sodium 137 mEq/L (136-145); eGFR For African Americans > 60 (> 60); eGFR For Non-African Americans > 60 (> 60)
[2020-12-14] MEDS: *HR* Enoxaparin 150 MG/ML SYRINGE SQ SCH (21:10)
[2020-12-15 01:53] LABS: Basophils # 0.1 K/mcL (0.0-0.2); Basophils % 0.8 %; Eosinophils # 0.1 K/mcL (0.0-0.6); Eosinophils % 0.9 %; Hematocrit 32.7 % (35.3-44.9); Hemoglobin 10.2 g/dL (11.5-15.4); Immature Granulocytes % 2.4 % (0-4); Lymphocytes % 14.7 %; Mean Corpuscular HGB Conc 31.2 g/dL (31.6-35.5); Mean Corpuscular Hemoglobin 30.1 pg (28.0-33.3); Mean Corpuscular Volume 96.5 fL (83.0-100.0); Monocytes # 1.4 K/mcL (0.0-1.3); Monocytes % 9.8 %; Neutrophils # 9.9 K/mcL (1.6-8.9); Nucleated Red Blood Cells 0.6 /100 WBC (0); Platelet Count 257 K/mcL (140-400); Red Blood Count 3.39 M/mcL (3.82-4.97); Red Cell Distribution Width 13.2 % (11.5-14.5); Segmented Neutrophils % 71.4 %; White Blood Count 13.9 K/mcL (4.3-11.1)
[2020-12-15 02:01] LABS: BUN/Creatinine Ratio 17 (6-26); Blood Urea Nitrogen 11 mg/dL (6-20); Calcium 8.3 mg/dL (8.6-10.3); Carbon Dioxide 25 mEq/L (23-29); Chloride 101 mEq/L (98-107); Glucose 110 mg/dL (70-105); Osmolality,Calculated 278 (280-300); Potassium 3.6 mEq/L (3.5-5.1); Sodium 134 mEq/L (136-145); eGFR For African Americans > 60 (> 60); eGFR For Non-African Americans > 60 (> 60)
[2020-12-15] MEDS: Budesonide/Formoterol 80/4.5 1 PUFF INH IH SCH ×2 (07:39→21:43)
[2020-12-15] MEDS: Aspirin 81 MG TAB.CHEW PO SCH (08:37)
[2020-12-15] MEDS ORDERED: Furosemide 40 MG/4 ML VIAL IVP ONE (08:37)
[2020-12-15] MEDS: *HR* Enoxaparin 150 MG/ML SYRINGE SQ SCH (10:44)
[2020-12-15] MEDS ORDERED: ALPRAZolam 0.5 MG TABLET PO PRN (12:19)
[2020-12-15] MEDS: Gabapentin 300 MG CAPSULE PO SCH ×2 (13:51→20:10)
[2020-12-15] MEDS: *HR* Enoxaparin 120 MG/0.8 ML SYRINGE SQ SCH (22:11)
[2020-12-16 04:15] LABS: Basophils # 0.1 K/mcL (0.0-0.2); Basophils % 1.2 %; Eosinophils # 0.1 K/mcL (0.0-0.6); Eosinophils % 1.3 %; Hematocrit 32.7 % (35.3-44.9); Hemoglobin 10.2 g/dL (11.5-15.4); Immature Granulocytes % 3.5 % (0-4); Lymphocytes # 1.7 K/mcL (0.6-4.6); Lymphocytes % 15.4 %; Mean Corpuscular HGB Conc 31.2 g/dL (31.6-35.5); Mean Corpuscular Hemoglobin 30.1 pg (28.0-33.3); Mean Corpuscular Volume 96.5 fL (83.0-100.0); Mean Platelet Volume 9.7 fL (9.4-12.4); Monocytes # 1.2 K/mcL (0.0-1.3); Monocytes % 11.3 %; Neutrophils # 7.3 K/mcL (1.6-8.9); Nucleated Red Blood Cells 0.8 /100 WBC (0); Platelet Count 259 K/mcL (140-400); Red Blood Count 3.39 M/mcL (3.82-4.97); Red Cell Distribution Width 13.5 % (11.5-14.5); Segmented Neutrophils % 67.3 %; White Blood Count 10.8 K/mcL (4.3-11.1)
[2020-12-16 04:34] LABS: BUN/Creatinine Ratio 19 (6-26); Blood Urea Nitrogen 12 mg/dL (6-20); Calcium 8.4 mg/dL (8.6-10.3); Carbon Dioxide 25 mEq/L (23-29); Chloride 98 mEq/L (98-107); Glucose 140 mg/dL (70-105); Osmolality,Calculated 282 (280-300); Potassium 3.3 mEq/L (3.5-5.1); Sodium 135 mEq/L (136-145); eGFR For African Americans > 60 (> 60); eGFR For Non-African Americans > 60 (> 60)
[2020-12-16] MEDS: Gabapentin 300 MG CAPSULE PO SCH ×3 (07:37→20:44)
[2020-12-16] MEDS: Aspirin 81 MG TAB.CHEW PO SCH (07:37)
[2020-12-16] MEDS: Cyanocobalamin (B-12) 1,000 MCG TABLET PO SCH (07:37)
[2020-12-16] MEDS: Budesonide/Formoterol 80/4.5 1 PUFF INH IH SCH ×2 (07:51→22:42)
[2020-12-16] MEDS: *HR* HYDROmorphone 2 MG/ML SYRINGE IVP PRN (10:53)
[2020-12-16 13:38] LABS: Hematocrit 31.7 % (35.3-44.9)
[2020-12-16] MEDS: *HR* Enoxaparin 120 MG/0.8 ML SYRINGE SQ SCH ×2 (15:54→20:44)
[2020-12-17 01:26] LABS: Basophils # 0.1 K/mcL (0.0-0.2); Basophils % 0.9 %; Eosinophils # 0.1 K/mcL (0.0-0.6); Eosinophils % 0.8 %; Hematocrit 29.6 % (35.3-44.9); Hemoglobin 9.5 g/dL (11.5-15.4); Immature Granulocytes % 3.6 % (0-4); Lymphocytes # 2.1 K/mcL (0.6-4.6); Mean Corpuscular HGB Conc 32.1 g/dL (31.6-35.5); Mean Corpuscular Hemoglobin 30.4 pg (28.0-33.3); Mean Corpuscular Volume 94.9 fL (83.0-100.0); Mean Platelet Volume 9.9 fL (9.4-12.4); Monocytes # 2.2 K/mcL (0.0-1.3); Monocytes % 14.6 %; Neutrophils # 9.8 K/mcL (1.6-8.9); Nucleated Red Blood Cells 0.7 /100 WBC (0); Platelet Count 259 K/mcL (140-400); Red Blood Count 3.12 M/mcL (3.82-4.97); Red Cell Distribution Width 13.4 % (11.5-14.5); Segmented Neutrophils % 66.1 %; White Blood Count 14.8 K/mcL (4.3-11.1)
[2020-12-17 01:45] LABS: BUN/Creatinine Ratio 23 (6-26); Blood Urea Nitrogen 16 mg/dL (6-20); Calcium 8.4 mg/dL (8.6-10.3); Carbon Dioxide 26 mEq/L (23-29); Chloride 99 mEq/L (98-107); Glucose 119 mg/dL (70-105); Osmolality,Calculated 276 (280-300); Potassium 3.6 mEq/L (3.5-5.1); Sodium 132 mEq/L (136-145); eGFR For African Americans > 60 (> 60); eGFR For Non-African Americans > 60 (> 60)
[2020-12-17] MEDS: Budesonide/Formoterol 80/4.5 1 PUFF INH IH SCH ×2 (07:44→19:57)
[2020-12-17] MEDS: Aspirin 81 MG TAB.CHEW PO SCH (10:25)
[2020-12-17] MEDS: Gabapentin 300 MG CAPSULE PO SCH ×3 (10:25→20:18)
[2020-12-17] MEDS: Cyanocobalamin (B-12) 1,000 MCG TABLET PO SCH (10:25)
[2020-12-17] MEDS: *HR* Enoxaparin 120 MG/0.8 ML SYRINGE SQ SCH ×2 (10:26→20:16)
[2020-12-17 13:16] LABS: Bacteria,Urine Moderate per hpf (None-Few); Bilirubin,Urine Negative (Negative); Blood,Urine Moderate (Negative); Clarity,Urine Turbid (Clear); Color,Urine Yellow (Yellow); Glucose,Urine (UA) Normal (Normal); Ketones,Urine Negative (Negative); Leukocyte Esterase,Urine Small (Negative); Mucus,Urine Few per lpf (None-Few); Nitrite,Urine Negative (Negative); PH,Urine 6.5 pH Units (5.0-8.0); Protein,Urine 70 mg/dL (Neg-Trace); RBC,Urine 50-100 per hpf (0-3); Squamous Epithelial Cell,Urine Few per hpf (None-Few); WBC,Urine 15-30 per hpf (0-3)
[2020-12-18 07:00] VITALS: PULSE 103
[2020-12-18] MEDS: Cyanocobalamin (B-12) 1,000 MCG TABLET PO SCH (08:23)
[2020-12-18] MEDS: Gabapentin 300 MG CAPSULE PO SCH (08:24)
[2020-12-18] MEDS: *HR* Enoxaparin 120 MG/0.8 ML SYRINGE SQ SCH (08:24)
[2020-12-18] MEDS: Aspirin 81 MG TAB.CHEW PO SCH (08:24)
[2020-12-18] MEDS: Budesonide/Formoterol 80/4.5 1 PUFF INH IH SCH (08:28)
[2020-12-18] MEDS ORDERED: cefTRIAXone 1,000 MG in Water for inj. (sterile) 10 ML IVP SCH (09:00)
[2020-12-18 11:32] VITALS: BP 138/85; TEMP 98.5; O2SAT 95
[2020-12-18] MEDS: *HR* HYDROmorphone 2 MG/ML SYRINGE IVP PRN (11:43)
[2020-12-18 14:11] LABS: Adenovirus Not Detected (Not Detect); Coronavirus 229E Not Detected (Not Detect); Coronavirus HKU1 Not Detected (Not Detect); Coronavirus NL63 Not Detected (Not Detect); Coronavirus OC43 DETECTED (Not Detect)
[2020-12-18 14:23] LABS: Human Metapneumovirus Not Detected (Not Detect); Human Rhinovirus/Enterovirus Not Detected (Not Detect); Influenza A Subtype 2009 H1 Not Detected (Not Detect); SARS-CoV-2 Not Detected (Not Detect)
[2020-12-18 14:24] LABS: Bordetella Pertussis Not Detected (Not Detect); Chlamydophila pneumoniae Not Detected (Not Detect); Influenza B Not Detected (Not Detect); Mycoplasma pneumoniae Not Detected (Not Detect); Parainfluenza Virus 1 Not Detected (Not Detect); Parainfluenza Virus 2 Not Detected (Not Detect); Parainfluenza Virus 3 Not Detected (Not Detect); Parainfluenza Virus 4 Not Detected (Not Detect); Respiratory Syncytial Virus Not Detected (Not Detect)
== END 2020-12-18 17:24 | DRG 480 ==
LOC: EMEROOARM 23:28 → 3NENU 23:28 → SUATTDRO 12-12 13:13
PROVIDERS: ADMIT Internal Medicine; ATTEND Hospitalist